=== PATIENT | male | born 1970 | race Asian ===

== ENCOUNTER 2019-05-01 07:08 | Emergency (ER) | payer OTHER ==
[~2019-05-01] VITALS: Ht 170.2 cm; Wt 106.6 kg
--- NOTE | 2019-05-01 07:15 | NUR ---
PT BIB SELF C/O PRODUCTIVE COUGH. VOICE HOARNESS. DIZZYNESS. PT IS AAOX4, NOT IN RESPIRATORY DISTRESS, HOOKED TO MONITOR, KEPT RESTED AND COMFORTABLE, WILL CONTINUE TO MONITOR.
--- NOTE | 2019-05-01 07:22 | NUR ---
SEEN AND EXAMINED BY
[2019-05-01] MEDS ORDERED: ALBUTEROL SULFATE INH 18 GM HFA.AER.AD IH STA (07:44)
--- NOTE | 2019-05-01 07:50 | NUR ---
RT AT BEDSIDE FOR BREATHING TREATMENT.
[2019-05-01] MEDS ORDERED: ALBUTEROL FS 2.5 MG/3 ML VIAL.NEB ONE (07:52)
[2019-05-01] MEDS ORDERED: predniSONE 10 MG TABLET ONE (07:57)
[2019-05-01] MEDS ORDERED: predniSONE 20 MG TABLET ONE (07:57)
[2019-05-01] MEDS ORDERED: predniSONE 50 MG TABLET PO ONE (08:00)
[2019-05-01] MEDS ORDERED: ALBUTEROL FS 2.5 MG/0.5 ML VIAL.NEB NEB ONE (08:00)
[2019-05-01 08:07] LABS: BASOPHILS % (AUTO) 0.4 % (0.0-2.0); EOSINOPHILS % (AUTO) 0.3 % (0.0-6.0); HEMATOCRIT 51 % (39-51); HEMOGLOBIN 17.1 g/dL (13.5-17.5); LYMPHOCYTES # (AUTO) 1.4 /CMM (0.8-4.8); LYMPHOCYTES % (AUTO) 21.3 % (20.0-44.0); MEAN CORPUSCULAR HGB CONC 34 g/dl (31.0-36.0); MEAN CORPUSCULAR VOLUME 87 fL (80-96); MONOCYTES # (AUTO) 1.2 /CMM (0.1-1.30); NEUTROPHILS # (AUTO) 3.8 /CMM (1.8-8.9); PLATELET COUNT (AUTO) 241 /CMM (150-450); RED BLOOD CELL COUNT(AUTO) 5.85 MIL/uL (4.5-6.0); WHITE BLOOD COUNT (AUTO) 6.5 K/uL (4.3-11.0)
--- NOTE | 2019-05-01 08:43 | NUR ---
PT. VERBALIZED UNDERSTANDING OF AFTERCARE INSTRUCTIONS.Patient discharged to home in stable condition. Written and verbal after care instructions given. Patient verbalizes understanding of instruction.
[2019-05-01 08:44] VITALS: BP 149/99
[2019-05-01 08:51] LABS: CALCIUM, SERUM 8.5 mg/dL (8.5-10.1); CREATININE 1.1 mg/dL (0.6-1.3); POTASSIUM 3.1 mmol/L (3.5-5.1)
[2019-05-01] MEDS ORDERED: LISINOPRIL (10MG) 10 MG TABLET PO SCH (09:00)
== END 2019-05-01 08:44 | disposition home or self-care (01) ==
LOC: ER 07:16
DX: J06.9 Acute upper respiratory infection, unspecified (principal); I10 Essential (primary) hypertension; F17.200 Nicotine dependence, unspecified, uncomplicated
CPT/HCPCS: 36415; 71046; 80048; 85025; 94640; 99284; J7512 ×2

== ENCOUNTER 2019-05-08 17:18 | Emergency (ER) | payer OTHER ==
[~2019-05-08] VITALS: Ht 170.2 cm; Wt 106.6 kg
[2019-05-08 17:32] VITALS: BP 164/105
== END 2019-05-08 18:44 | disposition home or self-care (01) ==
LOC: ER 17:22
DX: J20.9 Acute bronchitis, unspecified (principal); I10 Essential (primary) hypertension; F17.200 Nicotine dependence, unspecified, uncomplicated

== ENCOUNTER 2022-12-11 10:06 | Emergency (ER) | payer OTHER ==
[~2022-12-11] VITALS: Ht 170.2 cm; Wt 106.6 kg
[2022-12-11] MEDS ORDERED: IBUPROFEN 600 MG TABLET PO ONE (11:00)
[2022-12-11] MEDS ORDERED: IBUPROFEN 600 MG TABLET ONE (11:29)
[2022-12-11 13:03] VITALS: BP 122/86; TEMP 98.2; O2SAT 99
== END 2022-12-11 13:33 | disposition home or self-care (01) ==
LOC: ER 10:06
DX: M25.561 Pain in right knee (principal); I10 Essential (primary) hypertension
CPT/HCPCS: 73564-TC

== ENCOUNTER 2022-12-12 23:14 | Inpatient (IN) | payer OTHER ==
[~2022-12-12] VITALS: Ht 167.6 cm; Wt 93.0 kg
[2022-12-13] MEDS ORDERED: IV NS 0.9% 1,000 ML BAG IV ONE (00:30)
[2022-12-13] MEDS ORDERED: KETOROLAC TROMETHAMINE INJ 30 MG/ML VIAL IV ONE (00:30)
[2022-12-13] MEDS ORDERED: KETOROLAC TROMETHAMINE INJ 30 MG/ML VIAL ONE (00:57)
[2022-12-13 01:02] LABS: BASOPHILS % (AUTO) 0.1 % (0.0-2.0); HEMATOCRIT 51 % (39-51); HEMOGLOBIN 16.7 g/dL (13.5-17.5); LYMPHOCYTES # (AUTO) 0.6 K/uL (0.8-4.8); LYMPHOCYTES % (AUTO) 3.6 % (20.0-44.0); MEAN CORPUSCULAR HEMOGLOBIN 29 PG (26.0-33.0); MEAN CORPUSCULAR HGB CONC 33 g/dl (31.0-36.0); MEAN CORPUSCULAR VOLUME 90 fL (80-96); MONOCYTES # (AUTO) 0.7 K/uL (0.1-1.30); MONOCYTES % (AUTO) 3.9 % (2.0-12.0); NEUTROPHILS # (AUTO) 16.1 K/uL (1.8-8.9); NEUTROPHILS % (AUTO) 92.4 % (43.0-81.0); PLATELET COUNT (AUTO) 363 K/uL (150-450); RED BLOOD CELL COUNT(AUTO) 5.67 MIL/uL (4.5-6.0); WHITE BLOOD COUNT (AUTO) 17.5 K/uL (4.3-11.0)
[2022-12-13] MEDS ORDERED: CT SWABBABLE VALVE TRANS SET 1 EA INFUS.SET MC ONE (01:02)
[2022-12-13 01:04] LABS: APPEARANCE,URINE CLEAR (CLEAR); BILIRUBIN,URINE NEGATIVE (NEGATIVE); BLOOD, URINE TRACE-INTA Ery/uL (NEGATIVE); COLOR,URINE ORANGE (YELLOW); KETONES,URINE TRACE mg/dL (NEGATIVE); LEUKOCYTE ESTERASE ,URINE NEGATIVE (NEGATIVE); NITRITE, URINE NEGATIVE (NEGATIVE); PH,URINE 5.5 (5.0-8.0); PROTEIN,URINE 1+ mg/dl (NEGATIVE); UGLUCOSE TRACE mg/dL (NEGATIVE); UROBILINOGEN,URINE 0.2 EU/dL (0.2)
[2022-12-13 01:21] LABS: ADD URINE CULTURE NO; BACTERIA,URINE Rare /HPF (None Seen); RBC,URINE 0-2 /HPF (0-2); SQUAMOUS EPITHELIAL CELL,UR Rare /HPF (None Seen); WBC,URINE 0-2 /HPF (0-3)
[2022-12-13 01:28] LABS: CALCIUM, SERUM 9.6 mg/dL (8.5-10.1); CREATININE 2.2 mg/dL (0.6-1.3); POTASSIUM 4.3 mmol/L (3.5-5.1)
[2022-12-13 01:35] LABS: ALBUMIN 3.7 g/dL (3.4-5.0); BILIRUBIN,DIRECT 0.5 mg/dL (0.0-0.2); BILIRUBIN,TOTAL 1.8 mg/dL (0.2-1.0)
[2022-12-13] MEDS ORDERED: CEFEPIME 1 GM in IV D5W 50 ML IV ONE (03:30)
[2022-12-13] MEDS ORDERED: MORPHINE SULFATE INJ 2 MG/ML DISP.SYRIN IV ONE (03:30)
[2022-12-13] MEDS ORDERED: CEFEPIME 1 GM VIAL ONE (03:35)
[2022-12-13] MEDS ORDERED: MORPHINE SULFATE INJ 4 MG/ML DISP.SYRIN ONE (03:36)
[2022-12-13 04:11] LABS: INR 1.17 (0.91-1.10); PARTIAL THROMBOPLASTIN TIME 45.9 SEC (24.3-34.3); PROTHROMBIN TIME 12.3 SECS (9.2-11.1)
[2022-12-13] MEDS ORDERED: IV NS 0.9% 1,000 ML IV ONE (05:30)
[2022-12-13] MEDS ORDERED: METO-358 PO (05:43)
[2022-12-13] MEDS ORDERED: TOPI50TA24 PO (05:43)
[2022-12-13] MEDS ORDERED: ATOR80TA PO (05:43)
[2022-12-13] MEDS ORDERED: AMLO-213 PO (05:43)
[2022-12-13] MEDS ORDERED: GABA-532 PO (05:43)
[2022-12-13] MEDS ORDERED: DAPA5TAB PO (05:43)
[2022-12-13] MEDS ORDERED: LOSA50TA39 PO (05:43)
[2022-12-13] MEDS ORDERED: ASPI-1169 PO (05:43)
[2022-12-13 07:30] VITALS: BP 91/69; TEMP 99.3; O2SAT 95
[2022-12-13] MEDS ORDERED: BLOO-668 IN (08:17)
[2022-12-13] MEDS ORDERED: ACET-2605 PO (08:17)
[2022-12-13] MEDS ORDERED: MAGNESIUM HYDROXIDE PO (08:17)
[2022-12-13] MEDS ORDERED: CALC-1026 PO (08:17)
[2022-12-13] MEDS ORDERED: ALUMINUM HYDROXIDE PO (08:17)
[2022-12-13] MEDS ORDERED: DEXTROSE 50%-WATER 50 ML DISP.SYRIN IV PRN (09:00)
[2022-12-13] MEDS ORDERED: ZOLPIDEM TARTRATE 5 MG TABLET PO PRN (09:00)
[2022-12-13] MEDS ORDERED: ACETAMINOPHEN 325 MG TABLET PO PRN (09:00)
[2022-12-13] MEDS ORDERED: HYDROCODONE/APAP 5/325MG TABLET PO PRN (09:00)
[2022-12-13] MEDS: TOPIRAMATE 25 MG TABLET PO SCH (09:23)
[2022-12-13] MEDS: IV D5/ 0.9% NACL 1,000 ML IV SCH ×2 (09:58→18:05)
[2022-12-13] MEDS: HYDROMORPHONE 1 MG/1 ML DISP.SYRIN IV PRN (09:58)
[2022-12-13 10:02] VITALS: BP 102/74; TEMP 99.3; O2SAT 97
[2022-12-13] MEDS ORDERED: LIDOCAINE 1% INJ 50 ML MDV IJ ONE (10:20)
[2022-12-13] MEDS ORDERED: BUPIVACAINE 0.5 % PF 150 MG/30 ML VIAL ONE (10:22)
[2022-12-13] MEDS ORDERED: LIDOCAINE MPF 1%-EPI 1:200,000 30 ML VIAL IJ ONE (10:23)
[2022-12-13] MEDS ORDERED: LIDOCAINE 1%-EPI 1:100,000 20 ML VIAL ONE ×2 (10:57)
[2022-12-13] MEDS ORDERED: MIDAZOLAM HCL 2 MG/2ML VIAL ONE (11:12)
[2022-12-13] MEDS ORDERED: FENTANYL PF 250MCG/5ML AMPUL ONE (11:12)
[2022-12-13] MEDS ORDERED: HYDROMORPHONE INJ 2 MG/ML DISP.SYRIN ONE (11:12)
[2022-12-13] MEDS ORDERED: ROCURONIUM BROMIDE 50 MG/5 ML ONE (11:13)
[2022-12-13] MEDS ORDERED: FAMOTIDINE/PF INJ 20 MG/2 ML VIAL IV ONE (11:13)
[2022-12-13] MEDS: BLOOD SUGAR DIAGNOSTIC 1 EACH STRIP IN SCH ×3 (11:56→23:51)
[2022-12-13] MEDS: PIPERACILLIN /TAZOBACTAM 2.25 G in IV D5W 50 ML IV SCH ×3 (11:57→23:50)
[2022-12-13 16:00] VITALS: BP 99/71; TEMP 98.6; O2SAT 95
[2022-12-13] MEDS: INSULIN REGULAR, HUMAN 100 UNIT/ML 3 ML VIAL SQ PRN (17:37)
[2022-12-13 20:00] VITALS: BP 94/68; TEMP 99; O2SAT 99
[2022-12-14] MEDS: INSULIN REGULAR, HUMAN 100 UNIT/ML 3 ML VIAL SQ PRN ×4 (00:03→17:55)
[2022-12-14] MEDS: BLOOD SUGAR DIAGNOSTIC 1 EACH STRIP IN SCH ×3 (05:29→17:54)
[2022-12-14] MEDS: IV D5/ 0.9% NACL 1,000 ML IV SCH ×2 (05:29→15:31)
[2022-12-14] MEDS: PIPERACILLIN /TAZOBACTAM 2.25 G in IV D5W 50 ML IV SCH ×3 (05:30→17:29)
[2022-12-14 07:00] VITALS: BP 95/61; TEMP 98.4; O2SAT 94
[2022-12-14 07:22] LABS: BASOPHILS % (AUTO) 0.1 % (0.0-2.0); HEMATOCRIT 38 % (39-51); HEMOGLOBIN 12.2 g/dL (13.5-17.5); LYMPHOCYTES # (AUTO) 0.8 K/uL (0.8-4.8); LYMPHOCYTES % (AUTO) 5.3 % (20.0-44.0); MEAN CORPUSCULAR HEMOGLOBIN 29 PG (26.0-33.0); MEAN CORPUSCULAR HGB CONC 32 g/dl (31.0-36.0); MEAN CORPUSCULAR VOLUME 91 fL (80-96); MONOCYTES # (AUTO) 1.2 K/uL (0.1-1.30); MONOCYTES % (AUTO) 7.6 % (2.0-12.0); NEUTROPHILS # (AUTO) 13.3 K/uL (1.8-8.9); PLATELET COUNT (AUTO) 242 K/uL (150-450); RED BLOOD CELL COUNT(AUTO) 4.16 MIL/uL (4.5-6.0); RED CELL DISTRIBUTION WIDTH 14.2 % (11.5-15.0); WHITE BLOOD COUNT (AUTO) 15.2 K/uL (4.3-11.0)
[2022-12-14 07:30] LABS: CALCIUM, SERUM 8.1 mg/dL (8.5-10.1); CREATININE 1.3 mg/dL (0.6-1.3); MAGNESIUM 2.2 mg/dL (1.8-2.4); POTASSIUM 3.6 mmol/L (3.5-5.1)
[2022-12-14] MEDS: TOPIRAMATE 25 MG TABLET PO SCH (08:19)
[2022-12-14] MEDS: GABAPENTIN 100 MG CAPSULE PO SCH ×3 (09:13→17:00)
[2022-12-14] MEDS: MIDODRINE HCL (5MG) 5 MG TABLET PO SCH ×3 (09:14→17:00)
[2022-12-14] MEDS: ASPIRIN EC 81 MG TABLET.DR PO SCH (09:14)
[2022-12-14 09:40] VITALS: BP 104/74; O2SAT 95
[2022-12-14] MEDS: ONDANSETRON HCL/PF 4 MG/2 ML VIAL IV PRN ×3 (10:30→20:02)
[2022-12-14 12:00] VITALS: BP 112/70; TEMP 98.4; O2SAT 96
[2022-12-14 16:00] VITALS: BP 145/93; TEMP 98.4; O2SAT 98
[2022-12-14] MEDS: SIMETHICONE 80 MG TAB.CHEW PO PRN (16:06)
[2022-12-14 20:00] VITALS: BP 130/81; TEMP 97.9; O2SAT 96
[2022-12-14] MEDS: HYDROMORPHONE 1 MG/1 ML DISP.SYRIN IV PRN (20:51)
[2022-12-14] MEDS: ATORVASTATIN 40 MG TABLET PO SCH (21:29)
[2022-12-14 21:51] VITALS: BP 130/81; TEMP 97.9; O2SAT 96
[2022-12-15] MEDS: PIPERACILLIN /TAZOBACTAM 2.25 G in IV D5W 50 ML IV SCH ×5 (00:10→23:52)
[2022-12-15] MEDS: ONDANSETRON HCL/PF 4 MG/2 ML VIAL IV PRN (00:39)
[2022-12-15] MEDS: BLOOD SUGAR DIAGNOSTIC 1 EACH STRIP IN SCH ×5 (01:05→23:52)
[2022-12-15] MEDS: IV D5/ 0.9% NACL 1,000 ML IV SCH ×3 (01:27→20:51)
[2022-12-15] MEDS: INSULIN REGULAR, HUMAN 100 UNIT/ML 3 ML VIAL SQ PRN (01:35)
[2022-12-15] MEDS: HYDROMORPHONE 1 MG/1 ML DISP.SYRIN IV PRN ×2 (03:42→11:31)
[2022-12-15 07:41] LABS: HEMATOCRIT 43 % (39-51); LYMPHOCYTES # (AUTO) 0.8 K/uL (0.8-4.8); LYMPHOCYTES % (AUTO) 4.3 % (20.0-44.0); MEAN CORPUSCULAR HEMOGLOBIN 29 PG (26.0-33.0); MEAN CORPUSCULAR HGB CONC 33 g/dl (31.0-36.0); MEAN CORPUSCULAR VOLUME 89 fL (80-96); MONOCYTES # (AUTO) 1.3 K/uL (0.1-1.30); MONOCYTES % (AUTO) 7.2 % (2.0-12.0); NEUTROPHILS # (AUTO) 16.4 K/uL (1.8-8.9); NEUTROPHILS % (AUTO) 88.5 % (43.0-81.0); PLATELET COUNT (AUTO) 314 K/uL (150-450); RED BLOOD CELL COUNT(AUTO) 4.83 MIL/uL (4.5-6.0); RED CELL DISTRIBUTION WIDTH 14.5 % (11.5-15.0); WHITE BLOOD COUNT (AUTO) 18.5 K/uL (4.3-11.0)
[2022-12-15 08:00] VITALS: BP 136/83; TEMP 98.6; O2SAT 95
[2022-12-15 08:01] LABS: CALCIUM, SERUM 8.5 mg/dL (8.5-10.1); MAGNESIUM 2.3 mg/dL (1.8-2.4); POTASSIUM 3.2 mmol/L (3.5-5.1)
[2022-12-15] MEDS: ASPIRIN EC 81 MG TABLET.DR PO SCH (09:00)
[2022-12-15] MEDS: GABAPENTIN 100 MG CAPSULE PO SCH ×3 (09:00→17:00)
[2022-12-15] MEDS: TOPIRAMATE 25 MG TABLET PO SCH (09:00)
[2022-12-15] MEDS: MIDODRINE HCL (5MG) 5 MG TABLET PO SCH ×3 (09:00→17:00)
[2022-12-15] MEDS: METOCLOPRAMIDE HCL 10 MG/2 ML VIAL IV SCH ×3 (09:19→20:07)
[2022-12-15] MEDS: SIMETHICONE 80 MG TAB.CHEW PO PRN (11:31)
[2022-12-15] MEDS: POTASSIUM CL. PREMIX PERIPHER. 50 ML IV SCH ×6 (13:36→17:29)
[2022-12-15 14:52] VITALS: BP 118/96
[2022-12-15 15:59] VITALS: BP 124/88; TEMP 99.9; O2SAT 95
[2022-12-15] MEDS ORDERED: ACETAMINOPHEN 650 MG/SUPP.RECT RC PRN (19:00)
[2022-12-15 20:00] VITALS: BP 124/96; TEMP 99.1; O2SAT 96
[2022-12-15] MEDS: ATORVASTATIN 40 MG TABLET PO SCH (21:02)
[2022-12-16] MEDS: METOCLOPRAMIDE HCL 10 MG/2 ML VIAL IV SCH ×3 (01:32→15:04)
[2022-12-16] MEDS: PIPERACILLIN /TAZOBACTAM 2.25 G in IV D5W 50 ML IV SCH ×4 (05:06→23:18)
[2022-12-16 05:53] LABS: BASOPHILS % (AUTO) 0.1 % (0.0-2.0); EOSINOPHILS % (AUTO) 0.1 % (0.0-6.0); HEMATOCRIT 44 % (39-51); HEMOGLOBIN 14.4 g/dL (13.5-17.5); LYMPHOCYTES # (AUTO) 1.1 K/uL (0.8-4.8); LYMPHOCYTES % (AUTO) 6.7 % (20.0-44.0); MEAN CORPUSCULAR HEMOGLOBIN 30 PG (26.0-33.0); MEAN CORPUSCULAR HGB CONC 33 g/dl (31.0-36.0); MEAN CORPUSCULAR VOLUME 90 fL (80-96); MONOCYTES # (AUTO) 1.4 K/uL (0.1-1.30); MONOCYTES % (AUTO) 8.5 % (2.0-12.0); NEUTROPHILS % (AUTO) 84.6 % (43.0-81.0); PLATELET COUNT (AUTO) 335 K/uL (150-450); RED BLOOD CELL COUNT(AUTO) 4.89 MIL/uL (4.5-6.0); RED CELL DISTRIBUTION WIDTH 14.6 % (11.5-15.0); WHITE BLOOD COUNT (AUTO) 16.5 K/uL (4.3-11.0)
[2022-12-16] MEDS: BLOOD SUGAR DIAGNOSTIC 1 EACH STRIP IN SCH ×3 (05:54→18:07)
[2022-12-16 06:18] LABS: CALCIUM, SERUM 8.7 mg/dL (8.5-10.1); MAGNESIUM 2.6 mg/dL (1.8-2.4); POTASSIUM 3.3 mmol/L (3.5-5.1)
[2022-12-16] MEDS: IV D5/ 0.9% NACL 1,000 ML IV SCH (06:25)
[2022-12-16 08:00] VITALS: BP 120/94; TEMP 99.1; O2SAT 100
[2022-12-16] MEDS: GABAPENTIN 100 MG CAPSULE PO SCH ×3 (09:00→17:00)
[2022-12-16] MEDS: MIDODRINE HCL (5MG) 5 MG TABLET PO SCH ×3 (09:00→17:00)
[2022-12-16] MEDS ORDERED: Potassium Chloride 10 MEQ in IV NS 0.9% 1,000 ML IV PRN (09:00)
[2022-12-16] MEDS ORDERED: POTASSIUM CHLORIDE 10 MEQ/50 ML PREMIXED IVPB FOR PERIPHERAL LINE IV ONE (09:00)
[2022-12-16] MEDS: TOPIRAMATE 25 MG TABLET PO SCH (09:00)
[2022-12-16] MEDS: ASPIRIN EC 81 MG TABLET.DR PO SCH (09:00)
[2022-12-16 16:00] VITALS: BP 122/87; TEMP 97.9; O2SAT 98
[2022-12-16 20:00] VITALS: BP 134/95; TEMP 98.6; O2SAT 98
[2022-12-16] MEDS: ATORVASTATIN 40 MG TABLET PO SCH (21:11)
[2022-12-17] MEDS: PIPERACILLIN /TAZOBACTAM 2.25 G in IV D5W 50 ML IV SCH (05:02)
[2022-12-17] MEDS: BLOOD SUGAR DIAGNOSTIC 1 EACH STRIP IN SCH ×5 (05:12→23:39)
[2022-12-17 06:42] LABS: BASOPHILS % (AUTO) 0.1 % (0.0-2.0); EOSINOPHILS # (AUTO) 0.1 K/uL (0.0-0.7); EOSINOPHILS % (AUTO) 0.4 % (0.0-6.0); HEMATOCRIT 44 % (39-51); HEMOGLOBIN 14.7 g/dL (13.5-17.5); LYMPHOCYTES # (AUTO) 1.2 K/uL (0.8-4.8); MEAN CORPUSCULAR HEMOGLOBIN 30 PG (26.0-33.0); MEAN CORPUSCULAR HGB CONC 33 g/dl (31.0-36.0); MEAN CORPUSCULAR VOLUME 90 fL (80-96); MONOCYTES # (AUTO) 1.4 K/uL (0.1-1.30); MONOCYTES % (AUTO) 9.4 % (2.0-12.0); NEUTROPHILS % (AUTO) 82.1 % (43.0-81.0); PLATELET COUNT (AUTO) 358 K/uL (150-450); RED BLOOD CELL COUNT(AUTO) 4.93 MIL/uL (4.5-6.0); RED CELL DISTRIBUTION WIDTH 14.5 % (11.5-15.0); WHITE BLOOD COUNT (AUTO) 14.6 K/uL (4.3-11.0)
[2022-12-17 06:50] LABS: CALCIUM, SERUM 9.3 mg/dL (8.5-10.1); CREATININE 1.2 mg/dL (0.6-1.3); MAGNESIUM 2.7 mg/dL (1.8-2.4); POTASSIUM 3.2 mmol/L (3.5-5.1)
[2022-12-17] MEDS ORDERED: POTASSIUM CHLORIDE 10 MEQ/50 ML PREMIXED IVPB FOR PERIPHERAL LINE IV ONE (07:30)
[2022-12-17 08:41] VITALS: BP 152/97; TEMP 98.4; O2SAT 96
[2022-12-17] MEDS: TOPIRAMATE 25 MG TABLET PO SCH (09:00)
[2022-12-17] MEDS: GABAPENTIN 100 MG CAPSULE PO SCH ×3 (09:00→17:00)
[2022-12-17] MEDS: ASPIRIN EC 81 MG TABLET.DR PO SCH (09:00)
[2022-12-17] MEDS: POTASSIUM CL. PREMIX PERIPHER. 50 ML IV SCH ×4 (09:53→13:32)
[2022-12-17] MEDS: ENOXAPARIN SODIUM 40 MG/0.4 ML DISP.SYRIN SQ SCH (09:57)
[2022-12-17] MEDS ORDERED: Potassium Chloride 10 MEQ in IV NS 0.9% 1,000 ML IV SCH (10:26)
[2022-12-17] MEDS: ZOSYN IVPB 3.375 G in IV D5W 50ml IV SCH ×3 (13:33→23:36)
[2022-12-17 16:05] VITALS: BP 135/95; TEMP 98.4; O2SAT 98
[2022-12-17 20:00] VITALS: BP 132/98; TEMP 97.8; O2SAT 96
[2022-12-17] MEDS: Potassium Chloride 10 MEQ in IV NS 0.9% 1,000 ML IV SCH (20:35)
[2022-12-17] MEDS: ATORVASTATIN 40 MG TABLET PO SCH (21:13)
[2022-12-18] MEDS: HYDROMORPHONE 1 MG/1 ML DISP.SYRIN IV PRN ×3 (04:37→17:02)
[2022-12-18] MEDS: ZOSYN IVPB 3.375 G in IV D5W 50ml IV SCH ×3 (05:33→18:21)
[2022-12-18] MEDS: INSULIN REGULAR, HUMAN 100 UNIT/ML 3 ML VIAL SQ PRN (06:04)
[2022-12-18] MEDS: BLOOD SUGAR DIAGNOSTIC 1 EACH STRIP IN SCH ×3 (06:05→18:22)
[2022-12-18 06:24] LABS: BASOPHILS % (AUTO) 0.2 % (0.0-2.0); EOSINOPHILS # (AUTO) 0.1 K/uL (0.0-0.7); EOSINOPHILS % (AUTO) 0.8 % (0.0-6.0); HEMATOCRIT 46 % (39-51); HEMOGLOBIN 14.8 g/dL (13.5-17.5); LYMPHOCYTES # (AUTO) 1.1 K/uL (0.8-4.8); LYMPHOCYTES % (AUTO) 8.2 % (20.0-44.0); MEAN CORPUSCULAR HEMOGLOBIN 29 PG (26.0-33.0); MEAN CORPUSCULAR HGB CONC 32 g/dl (31.0-36.0); MEAN CORPUSCULAR VOLUME 92 fL (80-96); MONOCYTES # (AUTO) 1.3 K/uL (0.1-1.30); MONOCYTES % (AUTO) 9.3 % (2.0-12.0); NEUTROPHILS # (AUTO) 11.5 K/uL (1.8-8.9); NEUTROPHILS % (AUTO) 81.5 % (43.0-81.0); PLATELET COUNT (AUTO) 359 K/uL (150-450); RED BLOOD CELL COUNT(AUTO) 5.02 MIL/uL (4.5-6.0); WHITE BLOOD COUNT (AUTO) 14.1 K/uL (4.3-11.0)
[2022-12-18 06:51] LABS: CREATININE 1.2 mg/dL (0.6-1.3); MAGNESIUM 2.8 mg/dL (1.8-2.4); POTASSIUM 3.3 mmol/L (3.5-5.1)
[2022-12-18] MEDS: Potassium Chloride 10 MEQ in IV NS 0.9% 1,000 ML IV SCH (07:38)
[2022-12-18 08:00] VITALS: BP 125/77; TEMP 98.2; O2SAT 100
[2022-12-18] MEDS ORDERED: POTASSIUM CHLORIDE 10 MEQ/50 ML PREMIXED IVPB FOR PERIPHERAL LINE IV ONE (09:00)
[2022-12-18] MEDS: TOPIRAMATE 25 MG TABLET PO SCH (09:00)
[2022-12-18] MEDS: ASPIRIN EC 81 MG TABLET.DR PO SCH (09:00)
[2022-12-18] MEDS: GABAPENTIN 100 MG CAPSULE PO SCH ×3 (09:00→17:00)
[2022-12-18] MEDS: ENOXAPARIN SODIUM 40 MG/0.4 ML DISP.SYRIN SQ SCH (09:26)
[2022-12-18] MEDS: POTASSIUM CL. PREMIX PERIPHER. 50 ML IV SCH ×2 (11:06→12:07)
[2022-12-18 16:00] VITALS: BP 142/92; TEMP 98.1; O2SAT 97
[2022-12-18] MEDS: ONDANSETRON HCL/PF 4 MG/2 ML VIAL IV PRN (16:11)
[2022-12-18 20:04] VITALS: BP 128/91; TEMP 98.6; O2SAT 84
[2022-12-18] MEDS: ATORVASTATIN 40 MG TABLET PO SCH (21:36)
[2022-12-18] MEDS: LATANOPROST EYE DROP 0.005% 2.5 ML BOTTLE OP SCH (21:36)
[2022-12-18] MEDS: METOCLOPRAMIDE HCL 10 MG/2 ML VIAL IV SCH (21:36)
[2022-12-19] MEDS: ZOSYN IVPB 3.375 G in IV D5W 50ml IV SCH ×4 (00:05→17:30)
[2022-12-19] MEDS: BLOOD SUGAR DIAGNOSTIC 1 EACH STRIP IN SCH ×4 (00:06→17:29)
[2022-12-19] MEDS: INSULIN REGULAR, HUMAN 100 UNIT/ML 3 ML VIAL SQ PRN ×4 (00:19→17:46)
[2022-12-19] MEDS: METOCLOPRAMIDE HCL 10 MG/2 ML VIAL IV SCH ×4 (02:38→22:13)
[2022-12-19 06:52] LABS: BASOPHILS % (AUTO) 0.1 % (0.0-2.0); EOSINOPHILS # (AUTO) 0.4 K/uL (0.0-0.7); EOSINOPHILS % (AUTO) 2.8 % (0.0-6.0); HEMATOCRIT 46 % (39-51); HEMOGLOBIN 14.4 g/dL (13.5-17.5); LYMPHOCYTES # (AUTO) 1.4 K/uL (0.8-4.8); LYMPHOCYTES % (AUTO) 10.5 % (20.0-44.0); MEAN CORPUSCULAR HEMOGLOBIN 30 PG (26.0-33.0); MEAN CORPUSCULAR HGB CONC 32 g/dl (31.0-36.0); MEAN CORPUSCULAR VOLUME 94 fL (80-96); MONOCYTES # (AUTO) 1.3 K/uL (0.1-1.30); MONOCYTES % (AUTO) 9.5 % (2.0-12.0); NEUTROPHILS # (AUTO) 10.2 K/uL (1.8-8.9); NEUTROPHILS % (AUTO) 77.1 % (43.0-81.0); PLATELET COUNT (AUTO) 342 K/uL (150-450); RED BLOOD CELL COUNT(AUTO) 4.83 MIL/uL (4.5-6.0); RED CELL DISTRIBUTION WIDTH 15.2 % (11.5-15.0); WHITE BLOOD COUNT (AUTO) 13.2 K/uL (4.3-11.0)
[2022-12-19 07:09] LABS: CREATININE 1.1 mg/dL (0.6-1.3); POTASSIUM 3.6 mmol/L (3.5-5.1)
[2022-12-19 08:00] VITALS: BP 136/87; TEMP 98.7; O2SAT 99
[2022-12-19] MEDS: GABAPENTIN 100 MG CAPSULE PO SCH ×3 (08:51→17:22)
[2022-12-19] MEDS: ASPIRIN EC 81 MG TABLET.DR PO SCH (08:51)
[2022-12-19] MEDS: TOPIRAMATE 25 MG TABLET PO SCH (08:51)
[2022-12-19] MEDS: DORZOLAMIDE OPTH 2% 10 ML BOTTLE EACHEYE SCH ×3 (08:53→17:22)
[2022-12-19] MEDS: ENOXAPARIN SODIUM 40 MG/0.4 ML DISP.SYRIN SQ SCH (08:55)
[2022-12-19 16:00] VITALS: BP 117/83; TEMP 98.2; O2SAT 99
[2022-12-19 20:00] VITALS: BP 141/90; TEMP 98.6; O2SAT 100
[2022-12-19] MEDS: LATANOPROST EYE DROP 0.005% 2.5 ML BOTTLE OP SCH (22:13)
[2022-12-19] MEDS: ATORVASTATIN 40 MG TABLET PO SCH (22:13)
[2022-12-20] MEDS: ZOSYN IVPB 3.375 G in IV D5W 50ml IV SCH ×4 (00:08→17:20)
[2022-12-20] MEDS: BLOOD SUGAR DIAGNOSTIC 1 EACH STRIP IN SCH ×4 (00:09→17:19)
[2022-12-20] MEDS: INSULIN REGULAR, HUMAN 100 UNIT/ML 3 ML VIAL SQ PRN ×4 (00:19→17:20)
[2022-12-20] MEDS: METOCLOPRAMIDE HCL 10 MG/2 ML VIAL IV SCH ×4 (03:02→21:27)
[2022-12-20 06:08] LABS: BASOPHILS % (AUTO) 0.2 % (0.0-2.0); EOSINOPHILS # (AUTO) 0.8 K/uL (0.0-0.7); EOSINOPHILS % (AUTO) 5.8 % (0.0-6.0); HEMATOCRIT 38 % (39-51); HEMOGLOBIN 12.3 g/dL (13.5-17.5); LYMPHOCYTES % (AUTO) 13.7 % (20.0-44.0); MEAN CORPUSCULAR HEMOGLOBIN 30 PG (26.0-33.0); MEAN CORPUSCULAR HGB CONC 33 g/dl (31.0-36.0); MEAN CORPUSCULAR VOLUME 91 fL (80-96); MONOCYTES # (AUTO) 1.1 K/uL (0.1-1.30); MONOCYTES % (AUTO) 7.3 % (2.0-12.0); NEUTROPHILS # (AUTO) 10.6 K/uL (1.8-8.9); PLATELET COUNT (AUTO) 327 K/uL (150-450); RED BLOOD CELL COUNT(AUTO) 4.12 MIL/uL (4.5-6.0); RED CELL DISTRIBUTION WIDTH 13.9 % (11.5-15.0); WHITE BLOOD COUNT (AUTO) 14.5 K/uL (4.3-11.0)
[2022-12-20 06:31] LABS: CALCIUM, SERUM 8.2 mg/dL (8.5-10.1); CREATININE 0.9 mg/dL (0.6-1.3); POTASSIUM 3.5 mmol/L (3.5-5.1)
[2022-12-20 08:00] VITALS: BP 127/82; TEMP 98.2; O2SAT 100
[2022-12-20] MEDS: ASPIRIN EC 81 MG TABLET.DR PO SCH (08:26)
[2022-12-20] MEDS: GABAPENTIN 100 MG CAPSULE PO SCH ×3 (08:26→16:17)
[2022-12-20] MEDS: TOPIRAMATE 25 MG TABLET PO SCH (08:26)
[2022-12-20] MEDS: ENOXAPARIN SODIUM 40 MG/0.4 ML DISP.SYRIN SQ SCH (08:29)
[2022-12-20] MEDS: DORZOLAMIDE OPTH 2% 10 ML BOTTLE EACHEYE SCH ×3 (12:05→16:21)
[2022-12-20 16:00] VITALS: BP 146/90; TEMP 97.6; O2SAT 96
[2022-12-20 20:08] VITALS: BP 140/87; TEMP 98.8; O2SAT 99
[2022-12-20] MEDS: LATANOPROST EYE DROP 0.005% 2.5 ML BOTTLE OP SCH (21:27)
[2022-12-20] MEDS: ATORVASTATIN 40 MG TABLET PO SCH (21:28)
[2022-12-21] MEDS: BLOOD SUGAR DIAGNOSTIC 1 EACH STRIP IN SCH ×4 (02:26→17:49)
[2022-12-21] MEDS: ZOSYN IVPB 3.375 G in IV D5W 50ml IV SCH ×2 (02:28→05:03)
[2022-12-21] MEDS: METOCLOPRAMIDE HCL 10 MG/2 ML VIAL IV SCH ×4 (02:32→21:17)
[2022-12-21 06:48] LABS: BASOPHILS % (AUTO) 0.2 % (0.0-2.0); EOSINOPHILS # (AUTO) 0.6 K/uL (0.0-0.7); EOSINOPHILS % (AUTO) 4.3 % (0.0-6.0); HEMATOCRIT 39 % (39-51); HEMOGLOBIN 12.9 g/dL (13.5-17.5); LYMPHOCYTES # (AUTO) 1.8 K/uL (0.8-4.8); LYMPHOCYTES % (AUTO) 13.1 % (20.0-44.0); MEAN CORPUSCULAR HEMOGLOBIN 30 PG (26.0-33.0); MEAN CORPUSCULAR HGB CONC 33 g/dl (31.0-36.0); MEAN CORPUSCULAR VOLUME 91 fL (80-96); MONOCYTES # (AUTO) 0.9 K/uL (0.1-1.30); MONOCYTES % (AUTO) 6.4 % (2.0-12.0); NEUTROPHILS # (AUTO) 10.6 K/uL (1.8-8.9); PLATELET COUNT (AUTO) 345 K/uL (150-450); RED BLOOD CELL COUNT(AUTO) 4.36 MIL/uL (4.5-6.0)
[2022-12-21 07:14] LABS: CALCIUM, SERUM 7.6 mg/dL (8.5-10.1); CREATININE 0.9 mg/dL (0.6-1.3); POTASSIUM 3.6 mmol/L (3.5-5.1)
[2022-12-21 08:00] VITALS: BP 128/110; TEMP 98.8
[2022-12-21 08:34] VITALS: BP 126/110; TEMP 98.8; O2SAT 96
[2022-12-21] MEDS: TOPIRAMATE 25 MG TABLET PO SCH (09:27)
[2022-12-21] MEDS: ASPIRIN EC 81 MG TABLET.DR PO SCH (09:27)
[2022-12-21] MEDS: GABAPENTIN 100 MG CAPSULE PO SCH ×3 (09:27→17:49)
[2022-12-21] MEDS: ENOXAPARIN SODIUM 40 MG/0.4 ML DISP.SYRIN SQ SCH (09:35)
[2022-12-21] MEDS: DORZOLAMIDE OPTH 2% 10 ML BOTTLE EACHEYE SCH ×3 (09:36→17:49)
[2022-12-21] MEDS: PIPERACILLIN /TAZOBACTAM 3.375 G in IV D5W 100 ML IV SCH ×2 (12:33→21:18)
[2022-12-21 16:00] VITALS: BP 125/91; TEMP 98.8
[2022-12-21 20:00] VITALS: BP 132/91; TEMP 98.1; O2SAT 99
[2022-12-21] MEDS: ATORVASTATIN 40 MG TABLET PO SCH (21:20)
[2022-12-21] MEDS: LATANOPROST EYE DROP 0.005% 2.5 ML BOTTLE OP SCH (21:20)
[2022-12-22] MEDS: BLOOD SUGAR DIAGNOSTIC 1 EACH STRIP IN SCH ×4 (00:14→17:25)
[2022-12-22] MEDS: INSULIN REGULAR, HUMAN 100 UNIT/ML 3 ML VIAL SQ PRN ×4 (00:15→17:26)
[2022-12-22] MEDS: METOCLOPRAMIDE HCL 10 MG/2 ML VIAL IV SCH ×4 (03:05→21:19)
[2022-12-22] MEDS: PIPERACILLIN /TAZOBACTAM 3.375 G in IV D5W 100 ML IV SCH ×3 (04:03→21:09)
[2022-12-22 08:00] VITALS: BP 115/80; TEMP 98.6; O2SAT 98
[2022-12-22] MEDS: ASPIRIN EC 81 MG TABLET.DR PO SCH (08:08)
[2022-12-22] MEDS: DORZOLAMIDE OPTH 2% 10 ML BOTTLE EACHEYE SCH ×3 (08:08→17:25)
[2022-12-22] MEDS: GABAPENTIN 100 MG CAPSULE PO SCH ×3 (08:09→17:25)
[2022-12-22] MEDS: TOPIRAMATE 25 MG TABLET PO SCH (08:09)
[2022-12-22] MEDS: ENOXAPARIN SODIUM 40 MG/0.4 ML DISP.SYRIN SQ SCH (08:10)
[2022-12-22 16:00] VITALS: BP 114/78; TEMP 99.1; O2SAT 97
[2022-12-22 20:00] VITALS: BP 117/85; TEMP 98.2; O2SAT 99
[2022-12-22] MEDS: LATANOPROST EYE DROP 0.005% 2.5 ML BOTTLE OP SCH (21:09)
[2022-12-22] MEDS: ATORVASTATIN 40 MG TABLET PO SCH (21:10)
[2022-12-23] MEDS: BLOOD SUGAR DIAGNOSTIC 1 EACH STRIP IN SCH ×5 (00:17→23:29)
[2022-12-23] MEDS: INSULIN REGULAR, HUMAN 100 UNIT/ML 3 ML VIAL SQ PRN ×4 (00:18→23:30)
[2022-12-23] MEDS: METOCLOPRAMIDE HCL 10 MG/2 ML VIAL IV SCH ×4 (03:02→20:34)
[2022-12-23] MEDS: PIPERACILLIN /TAZOBACTAM 3.375 G in IV D5W 100 ML IV SCH ×3 (04:47→20:34)
[2022-12-23] MEDS: TOPIRAMATE 25 MG TABLET PO SCH (08:19)
[2022-12-23] MEDS: GABAPENTIN 100 MG CAPSULE PO SCH ×3 (08:20→17:01)
[2022-12-23] MEDS: ASPIRIN EC 81 MG TABLET.DR PO SCH (08:20)
[2022-12-23] MEDS: ENOXAPARIN SODIUM 40 MG/0.4 ML DISP.SYRIN SQ SCH (08:22)
[2022-12-23] MEDS: DORZOLAMIDE OPTH 2% 10 ML BOTTLE EACHEYE SCH ×3 (08:45→17:03)
[2022-12-23 09:10] VITALS: BP 110/79; TEMP 98; O2SAT 98
[2022-12-23 16:21] VITALS: BP 113/80; TEMP 98.1; O2SAT 98
[2022-12-23 20:00] VITALS: BP 115/87; TEMP 98.1; O2SAT 99
[2022-12-23] MEDS: LATANOPROST EYE DROP 0.005% 2.5 ML BOTTLE OP SCH (21:14)
[2022-12-23] MEDS: ATORVASTATIN 40 MG TABLET PO SCH (21:15)
[2022-12-24] MEDS: METOCLOPRAMIDE HCL 10 MG/2 ML VIAL IV SCH ×4 (02:08→20:25)
[2022-12-24] MEDS: PIPERACILLIN /TAZOBACTAM 3.375 G in IV D5W 100 ML IV SCH ×3 (04:02→20:17)
[2022-12-24] MEDS: BLOOD SUGAR DIAGNOSTIC 1 EACH STRIP IN SCH ×3 (05:12→17:32)
[2022-12-24] MEDS: INSULIN REGULAR, HUMAN 100 UNIT/ML 3 ML VIAL SQ PRN ×2 (05:13→19:04)
[2022-12-24 08:00] VITALS: BP 117/76; TEMP 98.4; O2SAT 99
[2022-12-24] MEDS: TOPIRAMATE 25 MG TABLET PO SCH (08:18)
[2022-12-24] MEDS: ENOXAPARIN SODIUM 40 MG/0.4 ML DISP.SYRIN SQ SCH (08:18)
[2022-12-24] MEDS: GABAPENTIN 100 MG CAPSULE PO SCH ×3 (08:18→17:21)
[2022-12-24] MEDS: ASPIRIN EC 81 MG TABLET.DR PO SCH (08:18)
[2022-12-24] MEDS: DORZOLAMIDE OPTH 2% 10 ML BOTTLE EACHEYE SCH ×4 (09:20→17:21)
[2022-12-24 10:59] LABS: ALBUMIN 2.3 g/dL (3.4-5.0); BILIRUBIN,TOTAL 0.7 mg/dL (0.2-1.0); CALCIUM, SERUM 8.2 mg/dL (8.5-10.1); POTASSIUM 3.3 mmol/L (3.5-5.1); TOTAL PROTEIN, SERUM 6.6 g/dL (6.4-8.2)
[2022-12-24 11:17] LABS: INR 1.03 (0.91-1.10); PARTIAL THROMBOPLASTIN TIME 34.6 SEC (24.3-34.3); PROTHROMBIN TIME 10.9 SECS (9.2-11.1)
[2022-12-24] MEDS ORDERED: NALOXONE PREFILLED SYRINGE 2 MG/2 ML SYRINGE IV PRN (12:00)
[2022-12-24] MEDS ORDERED: FLUMAZENIL 0.5 MG VIAL IV PRN (12:00)
[2022-12-24] MEDS ORDERED: MIDAZOLAM HCL 2 MG/2ML VIAL IV PRN (12:00)
[2022-12-24] MEDS ORDERED: FENTANYL PF 250MCG/5ML AMPUL IV PRN (12:00)
[2022-12-24] MEDS ORDERED: POTASSIUM CHLORIDE 20 MEQ POWDER PACKET PO ONE (13:00)
[2022-12-24 16:00] VITALS: BP 112/80; TEMP 98.6; O2SAT 100
[2022-12-24 20:00] VITALS: BP 125/84; TEMP 98.4; O2SAT 97
[2022-12-24] MEDS: ATORVASTATIN 40 MG TABLET PO SCH (22:14)
[2022-12-24] MEDS: LATANOPROST EYE DROP 0.005% 2.5 ML BOTTLE OP SCH (22:14)
[2022-12-25] MEDS: BLOOD SUGAR DIAGNOSTIC 1 EACH STRIP IN SCH ×4 (00:23→18:01)
[2022-12-25] MEDS: METOCLOPRAMIDE HCL 10 MG/2 ML VIAL IV SCH ×4 (03:07→21:05)
[2022-12-25] MEDS: PIPERACILLIN /TAZOBACTAM 3.375 G in IV D5W 100 ML IV SCH ×3 (04:16→20:28)
[2022-12-25 06:24] LABS: BASOPHILS # (AUTO) 0.1 K/uL (0.0-0.2); BASOPHILS % (AUTO) 0.4 % (0.0-2.0); EOSINOPHILS # (AUTO) 0.3 K/uL (0.0-0.7); EOSINOPHILS % (AUTO) 2.1 % (0.0-6.0); HEMATOCRIT 35 % (39-51); HEMOGLOBIN 11.5 g/dL (13.5-17.5); LYMPHOCYTES # (AUTO) 1.5 K/uL (0.8-4.8); MEAN CORPUSCULAR HEMOGLOBIN 30 PG (26.0-33.0); MEAN CORPUSCULAR HGB CONC 32 g/dl (31.0-36.0); MEAN CORPUSCULAR VOLUME 91 fL (80-96); MONOCYTES # (AUTO) 1.4 K/uL (0.1-1.30); MONOCYTES % (AUTO) 9.1 % (2.0-12.0); NEUTROPHILS % (AUTO) 78.4 % (43.0-81.0); PLATELET COUNT (AUTO) 310 K/uL (150-450); RED BLOOD CELL COUNT(AUTO) 3.88 MIL/uL (4.5-6.0); RED CELL DISTRIBUTION WIDTH 14.8 % (11.5-15.0); WHITE BLOOD COUNT (AUTO) 15.4 K/uL (4.3-11.0)
[2022-12-25 06:47] LABS: CALCIUM, SERUM 7.9 mg/dL (8.5-10.1); CREATININE 0.8 mg/dL (0.6-1.3); POTASSIUM 4.1 mmol/L (3.5-5.1)
[2022-12-25 07:30] VITALS: BP 114/75; TEMP 97.9; O2SAT 99
[2022-12-25] MEDS: ASPIRIN EC 81 MG TABLET.DR PO SCH (09:22)
[2022-12-25] MEDS: TOPIRAMATE 25 MG TABLET PO SCH (09:24)
[2022-12-25] MEDS: GABAPENTIN 100 MG CAPSULE PO SCH ×3 (09:24→17:47)
[2022-12-25] MEDS: ENOXAPARIN SODIUM 40 MG/0.4 ML DISP.SYRIN SQ SCH (09:27)
[2022-12-25] MEDS: DORZOLAMIDE OPTH 2% 10 ML BOTTLE EACHEYE SCH ×3 (09:28→17:47)
[2022-12-25 16:00] VITALS: BP 113/83; TEMP 98.4; O2SAT 99
[2022-12-25 19:00] VITALS: BP 110/80; TEMP 96.8; O2SAT 99
[2022-12-25] MEDS: ATORVASTATIN 40 MG TABLET PO SCH (21:05)
[2022-12-25] MEDS: LATANOPROST EYE DROP 0.005% 2.5 ML BOTTLE OP SCH (21:05)
[2022-12-26] MEDS: BLOOD SUGAR DIAGNOSTIC 1 EACH STRIP IN SCH ×5 (00:41→23:44)
[2022-12-26] MEDS: METOCLOPRAMIDE HCL 10 MG/2 ML VIAL IV SCH ×4 (02:52→20:25)
[2022-12-26] MEDS: PIPERACILLIN /TAZOBACTAM 3.375 G in IV D5W 100 ML IV SCH ×3 (04:16→20:25)
[2022-12-26 08:19] VITALS: BP 127/90; TEMP 98.6; O2SAT 98
[2022-12-26] MEDS: ENOXAPARIN SODIUM 40 MG/0.4 ML DISP.SYRIN SQ SCH (08:52)
[2022-12-26] MEDS: ASPIRIN EC 81 MG TABLET.DR PO SCH (08:54)
[2022-12-26] MEDS: TOPIRAMATE 25 MG TABLET PO SCH (08:54)
[2022-12-26] MEDS: GABAPENTIN 100 MG CAPSULE PO SCH ×3 (08:55→17:40)
[2022-12-26] MEDS: DORZOLAMIDE OPTH 2% 10 ML BOTTLE EACHEYE SCH ×3 (08:58→17:40)
[2022-12-26 16:00] VITALS: BP 101/73; TEMP 98.6; O2SAT 98
[2022-12-26 20:45] VITALS: BP 107/79; TEMP 99; O2SAT 99
[2022-12-26] MEDS: ATORVASTATIN 40 MG TABLET PO SCH (21:23)
[2022-12-26] MEDS: LATANOPROST EYE DROP 0.005% 2.5 ML BOTTLE OP SCH (21:24)
[2022-12-27] MEDS: METOCLOPRAMIDE HCL 10 MG/2 ML VIAL IV SCH ×4 (02:27→21:15)
[2022-12-27] MEDS: PIPERACILLIN /TAZOBACTAM 3.375 G in IV D5W 100 ML IV SCH ×3 (04:09→21:16)
[2022-12-27] MEDS: BLOOD SUGAR DIAGNOSTIC 1 EACH STRIP IN SCH ×3 (06:00→18:02)
[2022-12-27 07:30] LABS: BASOPHILS # (AUTO) 0.1 K/uL (0.0-0.2); BASOPHILS % (AUTO) 0.7 % (0.0-2.0); EOSINOPHILS # (AUTO) 0.3 K/uL (0.0-0.7); EOSINOPHILS % (AUTO) 2.3 % (0.0-6.0); HEMATOCRIT 36 % (39-51); HEMOGLOBIN 11.8 g/dL (13.5-17.5); LYMPHOCYTES # (AUTO) 1.2 K/uL (0.8-4.8); LYMPHOCYTES % (AUTO) 9.6 % (20.0-44.0); MEAN CORPUSCULAR HEMOGLOBIN 30 PG (26.0-33.0); MEAN CORPUSCULAR HGB CONC 33 g/dl (31.0-36.0); MEAN CORPUSCULAR VOLUME 91 fL (80-96); MONOCYTES # (AUTO) 1.4 K/uL (0.1-1.30); MONOCYTES % (AUTO) 10.9 % (2.0-12.0); NEUTROPHILS # (AUTO) 9.9 K/uL (1.8-8.9); NEUTROPHILS % (AUTO) 76.5 % (43.0-81.0); PLATELET COUNT (AUTO) 371 K/uL (150-450); RED BLOOD CELL COUNT(AUTO) 3.96 MIL/uL (4.5-6.0); RED CELL DISTRIBUTION WIDTH 14.3 % (11.5-15.0); WHITE BLOOD COUNT (AUTO) 12.9 K/uL (4.3-11.0)
[2022-12-27 07:46] LABS: CALCIUM, SERUM 8.6 mg/dL (8.5-10.1); CREATININE 0.8 mg/dL (0.6-1.3); POTASSIUM 3.5 mmol/L (3.5-5.1)
[2022-12-27 08:00] VITALS: BP 105/76; TEMP 98.1; O2SAT 98
[2022-12-27] MEDS: GABAPENTIN 100 MG CAPSULE PO SCH ×3 (10:12→18:02)
[2022-12-27] MEDS: TOPIRAMATE 25 MG TABLET PO SCH (10:13)
[2022-12-27] MEDS: ASPIRIN EC 81 MG TABLET.DR PO SCH (10:13)
[2022-12-27] MEDS: ENOXAPARIN SODIUM 40 MG/0.4 ML DISP.SYRIN SQ SCH (10:14)
[2022-12-27] MEDS: DORZOLAMIDE OPTH 2% 10 ML BOTTLE EACHEYE SCH ×3 (10:14→18:02)
[2022-12-27 20:00] VITALS: BP 100/70; TEMP 99; O2SAT 98
[2022-12-27] MEDS: ATORVASTATIN 40 MG TABLET PO SCH (21:15)
[2022-12-27] MEDS: LATANOPROST EYE DROP 0.005% 2.5 ML BOTTLE OP SCH (21:15)
[2022-12-28] MEDS: INSULIN REGULAR, HUMAN 100 UNIT/ML 3 ML VIAL SQ PRN ×2 (00:01→05:10)
[2022-12-28] MEDS: METOCLOPRAMIDE HCL 10 MG/2 ML VIAL IV SCH ×4 (02:35→21:17)
[2022-12-28] MEDS: BLOOD SUGAR DIAGNOSTIC 1 EACH STRIP IN SCH ×4 (05:02→17:30)
[2022-12-28] MEDS: PIPERACILLIN /TAZOBACTAM 3.375 G in IV D5W 100 ML IV SCH ×3 (05:02→21:18)
[2022-12-28 09:17] VITALS: BP 116/78; TEMP 98; O2SAT 99
[2022-12-28] MEDS: ENOXAPARIN SODIUM 40 MG/0.4 ML DISP.SYRIN SQ SCH (10:11)
[2022-12-28] MEDS: GABAPENTIN 100 MG CAPSULE PO SCH ×3 (10:12→17:30)
[2022-12-28] MEDS: ASPIRIN EC 81 MG TABLET.DR PO SCH (10:12)
[2022-12-28] MEDS: DORZOLAMIDE OPTH 2% 10 ML BOTTLE EACHEYE SCH ×3 (10:13→17:30)
[2022-12-28] MEDS: TOPIRAMATE 25 MG TABLET PO SCH (10:13)
[2022-12-28 12:25] VITALS: BP 117/81; TEMP 98.2; O2SAT 100
[2022-12-28 15:47] VITALS: BP 146/72; TEMP 98; O2SAT 100
[2022-12-28 20:00] VITALS: BP 107/77; TEMP 98.8; O2SAT 99
[2022-12-28] MEDS: LATANOPROST EYE DROP 0.005% 2.5 ML BOTTLE OP SCH (21:17)
[2022-12-28] MEDS: ATORVASTATIN 40 MG TABLET PO SCH (21:18)
[2022-12-29] MEDS: BLOOD SUGAR DIAGNOSTIC 1 EACH STRIP IN SCH ×5 (00:22→23:21)
[2022-12-29] MEDS: INSULIN REGULAR, HUMAN 100 UNIT/ML 3 ML VIAL SQ PRN ×5 (00:22→23:22)
[2022-12-29] MEDS: METOCLOPRAMIDE HCL 10 MG/2 ML VIAL IV SCH ×4 (03:35→21:19)
[2022-12-29] MEDS: PIPERACILLIN /TAZOBACTAM 3.375 G in IV D5W 100 ML IV SCH ×3 (05:01→20:12)
[2022-12-29 07:44] LABS: BASOPHILS # (AUTO) 0.1 K/uL (0.0-0.2); BASOPHILS % (AUTO) 0.8 % (0.0-2.0); EOSINOPHILS # (AUTO) 0.4 K/uL (0.0-0.7); EOSINOPHILS % (AUTO) 3.4 % (0.0-6.0); HEMATOCRIT 34 % (39-51); HEMOGLOBIN 11.2 g/dL (13.5-17.5); LYMPHOCYTES # (AUTO) 1.4 K/uL (0.8-4.8); LYMPHOCYTES % (AUTO) 12.8 % (20.0-44.0); MEAN CORPUSCULAR HEMOGLOBIN 30 PG (26.0-33.0); MEAN CORPUSCULAR HGB CONC 33 g/dl (31.0-36.0); MEAN CORPUSCULAR VOLUME 91 fL (80-96); MONOCYTES # (AUTO) 1.1 K/uL (0.1-1.30); MONOCYTES % (AUTO) 10.2 % (2.0-12.0); NEUTROPHILS # (AUTO) 7.9 K/uL (1.8-8.9); NEUTROPHILS % (AUTO) 72.8 % (43.0-81.0); PLATELET COUNT (AUTO) 404 K/uL (150-450); RED BLOOD CELL COUNT(AUTO) 3.73 MIL/uL (4.5-6.0); RED CELL DISTRIBUTION WIDTH 14.6 % (11.5-15.0); WHITE BLOOD COUNT (AUTO) 10.9 K/uL (4.3-11.0)
[2022-12-29 07:50] LABS: CALCIUM, SERUM 7.8 mg/dL (8.5-10.1); CREATININE 0.9 mg/dL (0.6-1.3); POTASSIUM 3.6 mmol/L (3.5-5.1)
[2022-12-29 08:00] VITALS: BP 107/85; TEMP 98.4; O2SAT 100
[2022-12-29] MEDS: GABAPENTIN 100 MG CAPSULE PO SCH ×3 (09:03→17:10)
[2022-12-29] MEDS: ASPIRIN EC 81 MG TABLET.DR PO SCH (09:03)
[2022-12-29] MEDS: TOPIRAMATE 25 MG TABLET PO SCH (09:03)
[2022-12-29] MEDS: ENOXAPARIN SODIUM 40 MG/0.4 ML DISP.SYRIN SQ SCH (09:04)
[2022-12-29] MEDS: DORZOLAMIDE OPTH 2% 10 ML BOTTLE EACHEYE SCH ×3 (09:11→17:11)
[2022-12-29 16:00] VITALS: BP 106/78; TEMP 99.3; O2SAT 99
[2022-12-29 20:00] VITALS: BP 109/72; TEMP 99; O2SAT 96
[2022-12-29] MEDS: LATANOPROST EYE DROP 0.005% 2.5 ML BOTTLE OP SCH (21:19)
[2022-12-29] MEDS: ATORVASTATIN 40 MG TABLET PO SCH (21:20)
[2022-12-29 22:00] VITALS: BP 108/85; TEMP 99; O2SAT 100
[2022-12-30] MEDS: METOCLOPRAMIDE HCL 10 MG/2 ML VIAL IV SCH ×4 (02:08→20:36)
[2022-12-30] MEDS: PIPERACILLIN /TAZOBACTAM 3.375 G in IV D5W 100 ML IV SCH ×3 (04:42→20:52)
[2022-12-30] MEDS: BLOOD SUGAR DIAGNOSTIC 1 EACH STRIP IN SCH ×3 (05:22→18:45)
[2022-12-30] MEDS: INSULIN REGULAR, HUMAN 100 UNIT/ML 3 ML VIAL SQ PRN ×3 (05:23→18:46)
[2022-12-30 08:00] VITALS: BP 131/86; TEMP 97.7; O2SAT 99
[2022-12-30] MEDS: DORZOLAMIDE OPTH 2% 10 ML BOTTLE EACHEYE SCH ×3 (08:43→16:58)
[2022-12-30] MEDS: ASPIRIN EC 81 MG TABLET.DR PO SCH (08:43)
[2022-12-30] MEDS: GABAPENTIN 100 MG CAPSULE PO SCH ×3 (08:43→16:58)
[2022-12-30] MEDS: TOPIRAMATE 25 MG TABLET PO SCH (08:44)
[2022-12-30] MEDS: ENOXAPARIN SODIUM 40 MG/0.4 ML DISP.SYRIN SQ SCH (08:48)
[2022-12-30 16:00] VITALS: BP 126/97; TEMP 99.1; O2SAT 100
[2022-12-30 19:43] LABS: BASOPHILS # (AUTO) 0.1 K/uL (0.0-0.2); BASOPHILS % (AUTO) 0.7 % (0.0-2.0); EOSINOPHILS # (AUTO) 0.4 K/uL (0.0-0.7); EOSINOPHILS % (AUTO) 3.2 % (0.0-6.0); HEMATOCRIT 35 % (39-51); HEMOGLOBIN 11.4 g/dL (13.5-17.5); LYMPHOCYTES # (AUTO) 1.4 K/uL (0.8-4.8); LYMPHOCYTES % (AUTO) 11.1 % (20.0-44.0); MEAN CORPUSCULAR HEMOGLOBIN 29 PG (26.0-33.0); MEAN CORPUSCULAR HGB CONC 32 g/dl (31.0-36.0); MEAN CORPUSCULAR VOLUME 91 fL (80-96); MONOCYTES # (AUTO) 1.1 K/uL (0.1-1.30); MONOCYTES % (AUTO) 8.7 % (2.0-12.0); NEUTROPHILS # (AUTO) 9.9 K/uL (1.8-8.9); NEUTROPHILS % (AUTO) 76.3 % (43.0-81.0); PLATELET COUNT (AUTO) 436 K/uL (150-450); RED BLOOD CELL COUNT(AUTO) 3.89 MIL/uL (4.5-6.0); RED CELL DISTRIBUTION WIDTH 14.9 % (11.5-15.0)
[2022-12-30 19:53] LABS: CALCIUM, SERUM 8.5 mg/dL (8.5-10.1); POTASSIUM 3.7 mmol/L (3.5-5.1)
[2022-12-30 20:00] VITALS: BP 101/70; TEMP 99; O2SAT 99
[2022-12-30] MEDS: ATORVASTATIN 40 MG TABLET PO SCH (21:01)
[2022-12-30] MEDS: LATANOPROST EYE DROP 0.005% 2.5 ML BOTTLE OP SCH (21:02)
[2022-12-31] MEDS: BLOOD SUGAR DIAGNOSTIC 1 EACH STRIP IN SCH ×4 (00:46→17:57)
[2022-12-31] MEDS: INSULIN REGULAR, HUMAN 100 UNIT/ML 3 ML VIAL SQ PRN (00:46)
[2022-12-31] MEDS: METOCLOPRAMIDE HCL 10 MG/2 ML VIAL IV SCH ×4 (03:13→20:49)
[2022-12-31] MEDS: PIPERACILLIN /TAZOBACTAM 3.375 G in IV D5W 100 ML IV SCH ×3 (04:47→20:49)
[2022-12-31 07:00] VITALS: BP 108/86; TEMP 98.7; O2SAT 100
[2022-12-31 07:05] LABS: BASOPHILS # (AUTO) 0.1 K/uL (0.0-0.2); BASOPHILS % (AUTO) 0.6 % (0.0-2.0); EOSINOPHILS # (AUTO) 0.4 K/uL (0.0-0.7); EOSINOPHILS % (AUTO) 2.7 % (0.0-6.0); HEMATOCRIT 37 % (39-51); HEMOGLOBIN 11.8 g/dL (13.5-17.5); LYMPHOCYTES # (AUTO) 1.5 K/uL (0.8-4.8); LYMPHOCYTES % (AUTO) 10.5 % (20.0-44.0); MEAN CORPUSCULAR HEMOGLOBIN 30 PG (26.0-33.0); MEAN CORPUSCULAR HGB CONC 32 g/dl (31.0-36.0); MEAN CORPUSCULAR VOLUME 92 fL (80-96); MONOCYTES # (AUTO) 1.2 K/uL (0.1-1.30); MONOCYTES % (AUTO) 8.2 % (2.0-12.0); NEUTROPHILS # (AUTO) 11.3 K/uL (1.8-8.9); PLATELET COUNT (AUTO) 421 K/uL (150-450); RED BLOOD CELL COUNT(AUTO) 3.99 MIL/uL (4.5-6.0); RED CELL DISTRIBUTION WIDTH 14.5 % (11.5-15.0); WHITE BLOOD COUNT (AUTO) 14.5 K/uL (4.3-11.0)
[2022-12-31 07:32] LABS: CALCIUM, SERUM 8.9 mg/dL (8.5-10.1); POTASSIUM 4.1 mmol/L (3.5-5.1)
[2022-12-31] MEDS: GABAPENTIN 100 MG CAPSULE PO SCH ×3 (09:03→17:22)
[2022-12-31] MEDS: ASPIRIN EC 81 MG TABLET.DR PO SCH (09:03)
[2022-12-31] MEDS: DORZOLAMIDE OPTH 2% 10 ML BOTTLE EACHEYE SCH ×3 (09:03→17:22)
[2022-12-31] MEDS: TOPIRAMATE 25 MG TABLET PO SCH (09:04)
[2022-12-31] MEDS ORDERED: LEVO500T90 PO (09:55)
[2022-12-31] MEDS ORDERED: METR500T PO ×2 (09:55→09:56)
[2022-12-31 16:00] VITALS: BP 101/75; TEMP 93.3; O2SAT 99
[2022-12-31 20:00] VITALS: BP 107/76; TEMP 99.3; O2SAT 100
[2022-12-31] MEDS: ATORVASTATIN 40 MG TABLET PO SCH (21:04)
[2022-12-31] MEDS: LATANOPROST EYE DROP 0.005% 2.5 ML BOTTLE OP SCH (21:04)
[2023-01-01] MEDS: BLOOD SUGAR DIAGNOSTIC 1 EACH STRIP IN SCH ×3 (00:55→11:58)
[2023-01-01] MEDS: INSULIN REGULAR, HUMAN 100 UNIT/ML 3 ML VIAL SQ PRN ×2 (00:57→06:43)
[2023-01-01] MEDS: METOCLOPRAMIDE HCL 10 MG/2 ML VIAL IV SCH ×3 (03:25→14:19)
[2023-01-01] MEDS: PIPERACILLIN /TAZOBACTAM 3.375 G in IV D5W 100 ML IV SCH ×2 (04:14→12:28)
[2023-01-01 07:00] VITALS: BP 102/77; TEMP 97.7; O2SAT 98
[2023-01-01] MEDS: TOPIRAMATE 25 MG TABLET PO SCH (08:20)
[2023-01-01] MEDS: GABAPENTIN 100 MG CAPSULE PO SCH ×2 (08:20→12:44)
[2023-01-01] MEDS: ASPIRIN EC 81 MG TABLET.DR PO SCH (08:20)
[2023-01-01] MEDS: DORZOLAMIDE OPTH 2% 10 ML BOTTLE EACHEYE SCH ×2 (08:28→12:44)
[2023-01-01 16:05] VITALS: BP 101/81; TEMP 97.6; O2SAT 100
== END 2023-01-01 16:00 | disposition home health service (06) | DRG 853 ==
LOC: ER 23:17 → MED 12-13 07:13
PROVIDERS: ADMIT Nurse Practitioner Acute Care; ATTEND Internal Medicine
PROC: 0DTJ4ZZ Resection of Appendix, Percutaneous Endoscopic Approach (ICD-10-PCS; principal; 2022-12-13)
PROC: 0W9G30Z Drainage of Peritoneal Cavity with Drainage Device, Percutaneous Approach (ICD-10-PCS; 2022-12-13)
PROC: 0D9670Z Drainage of Stomach with Drainage Device, Via Natural or Artificial Opening (ICD-10-PCS; 2022-12-15)
DX: A41.9 Sepsis, unspecified organism (principal); K35.33 Acute appendicitis with perforation, localized peritonitis, and gangrene, with abscess; K56.7 Ileus, unspecified; N17.9 Acute kidney failure, unspecified; E87.0 Hyperosmolality and hypernatremia; E87.1 Hypo-osmolality and hyponatremia; I69.351 Hemiplegia and hemiparesis following cerebral infarction affecting right dominant side; R17 Unspecified jaundice; K38.1 Appendicular concretions; I10 Essential (primary) hypertension; E78.5 Hyperlipidemia, unspecified; E11.9 Type 2 diabetes mellitus without complications; E87.6 Hypokalemia; R23.8 Other skin changes; Z79.82 Long term (current) use of aspirin; Z79.899 Other long term (current) drug therapy; Z79.84 Long term (current) use of oral hypoglycemic drugs; R74.01 Elevation of levels of liver transaminase levels; K80.20 Calculus of gallbladder without cholecystitis without obstruction; Z82.49 Family history of ischemic heart disease and other diseases of the circulatory system
CPT/HCPCS: 36415; 71045-TC; 74018; 75989-TC; 76770-TC; 80048-TC; 80053-TC; 80076-TC; 81001; 82962-TC; 83690-TC; 83735-TC; 85025-TC; 85610-TC; 85730-TC; 86850-TC; 87081-TC; 88304-TC; 92526; 92611-TC; 97110-TC; 97116-TC; 97530-TC; 97535-TC; A4223; A6253; A6403; G0378; J0690; J0692; J1100; J1170; J1650; J1815; J1885; J2250; J2270; J2405; J2543; J2704; J2765; J3010; J3480; J3490; J7030; J7040; J7042; J7050; J7060